=== PATIENT | female | born 1995 | race Two or more races ===

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

== ENCOUNTER 2022-04-16 19:30 | Emergency (ER) | payer MEDICAID ==
[~2022-04-16] VITALS: Ht 142.2 cm; Wt 44.0 kg
[2022-04-16 20:00] VITALS: BP 113/81
[2022-04-16 20:12] LABS: Basophils # (auto) 0 10 ^3/uL (0-0.2); Basophils % (auto) 0.5 % (0.0-2.0); Eosinophils # (auto) 0 10 ^3/uL (0-0.8); Eosinophils % (auto) 0.2 % (0.0-7.0); Hemoglobin 13.9 g/dL (12.2-16.2); Lymphocytes # (auto) 1.2 10 ^3/uL (0.4-5.4); Lymphocytes % (auto) 16.1 % (10.0-50.0); Mean Corpuscular Hemoglobin 28.1 pg (28.0-32.0); Mean Corpuscular Hgb Conc. 33.8 g/dL (32.0-36.0); Mean Corpuscular Volume 83.1 fL (80.0-100.0); Monocytes # (auto) 0.4 10 ^3/uL (0-1.3); Monocytes % (auto) 6.1 % (0.0-12.0); Neutrophils # (auto) 5.6 10 ^3/uL (1.6-8.6); Neutrophils % (auto) 77.1 % (37.0-80.0); Nucleated Red Blood Cells % 0.1 %; Red Blood Cells 4.93 10^6/uL (4.0-5.20); Red Cell Distribution Width 14.9 % (11.8-14.3); White Blood Cell 7.3 10^3/uL (4.4-10.8)
[2022-04-16 20:28] LABS: Albumin 3.9 g/dL (3.4-5.0); BUN/Creatinine Ratio 8.3; Calcium 8.6 mg/dL (8.5-10.1); Magnesium 2.3 mg/dL (1.6-2.6); Potassium 3.8 mmol/L (3.5-5.1)
[2022-04-16 20:30] LABS: Bilirubin, Total 0.4 mg/dL (0.2-1.0); Total Protein 8.1 g/dL (6.4-8.2)
[2022-04-16 21:25] LABS: Amphetamine Screen, Urine NEGATIVE (NEGATIVE); Barbiturate Scree,Urine NEGATIVE (NEGATIVE); Benzodiazephine Screen, Urine NEGATIVE (NEGATIVE); Cannabinoid Screen, Urine POSITIVE (NEGATIVE); Cocaine Screen, Urine NEGATIVE (NEGATIVE); Opiate Scree,Urine NEGATIVE (NEGATIVE); Phencyclidine Screen, Urine NEGATIVE (NEGATIVE)
[2022-04-16 21:26] LABS: Urine Bacteria NONE SEEN /hpf (None Seen); Urine Blood 3+ /uL (Negative); Urine Hyaline Cast FEW /lpf (0 - 2); Urine Specific Gravity 1.015 (1.001-1.035); Urine WBC 4 /hpf (0 - 5)
== END 2022-04-17 | disposition left against medical advice (07) ==
LOC: ER 19:30
DX: R56.9 Unspecified convulsions (principal); Z53.21 Procedure and treatment not carried out due to patient leaving prior to being seen by health care provider; Z79.899 Other long term (current) drug therapy
CPT/HCPCS: 36415; 80053; 80307; 80320; 81001; 81025; 83735; 84484; 85025; 93005

== ENCOUNTER 2024-09-14 03:00 | Emergency (ER) | payer MEDICAID ==
[~2024-09-14] VITALS: Ht 142.2 cm; Wt 54.0 kg
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
[2024-09-14 06:09] VITALS: BP 126/92; PULSE 119; RESP 16; TEMP 99.1
[2024-09-14 06:13] VITALS: O2SAT 96
== END 2024-09-14 06:12 | disposition home or self-care (01) ==
LOC: ER 03:00 → EDBD 03:00 → ER 06:12
DX: S13.4XXA Sprain of ligaments of cervical spine, initial encounter (principal); V89.2XXA Person injured in unspecified motor-vehicle accident, traffic, initial encounter; Y93.I9 Activity, other involving external motion; Y92.488 Other paved roadways as the place of occurrence of the external cause; Y99.8 Other external cause status
CPT/HCPCS: 70450; 72125; 74176

== ENCOUNTER 2025-01-23 19:43 | Emergency (ER) | payer MEDICAID ==
[~2025-01-23] VITALS: Ht 142.2 cm; Wt 52.0 kg
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
[2025-01-23 20:38] LABS: Albumin 4.5 g/dL (3.2-4.8); Alkaline Phosphatase 72 U/L (46-116); Anion Gap 18 (5-15); BUN/Creatinine Ratio 8.4 (10.0-20.0); Calcium 9.1 mg/dL (8.7-10.4); Chloride 104 mmol/L (98-107); Potassium 3.9 mmol/L (3.5-5.1); Sodium 139 mmol/L (136-145); Total Protein 8.0 g/dL (5.7-8.2)
[2025-01-23 20:46] LABS: Cannabinoid Screen, Urine Pos (NEGATIVE); Cocaine Screen, Urine Neg (NEGATIVE)
[2025-01-23] MEDS: ONDANSETRON HCL 4 MG/2 ML VIAL IV ONE (21:00)
[2025-01-23] MEDS: SODIUM CHLORIDE 0.9% 1,000 ML IV ONE (21:00)
[2025-01-23] MEDS: ACETAMINOPHEN 500 MG TAB or CAP PO ONE (21:00)
[2025-01-23] MEDS: levETIRAcetam 1000 mg/100ml 100 ML IV ONE (21:00)
[2025-01-23 21:04] LABS: Urine Protein, UAD 1+ (Negative)
[2025-01-23 21:05] LABS: Amphetamine Screen, Urine Neg (NEGATIVE); Barbiturate Scree,Urine Neg (NEGATIVE); Benzodiazephine Screen, Urine Neg (NEGATIVE); Opiate Scree,Urine Neg (NEGATIVE); Phencyclidine Screen, Urine Neg (NEGATIVE)
[2025-01-23 21:05] LABS: Alanine Aminotransferase 80 U/L (7-40); Bilirubin, Total 1.2 mg/dL (0.2-1.0); Blood Urea Nitrogen 7 mg/dL (9-23); Carbon Dioxide 17 mmol/L (20-31); Glucose 121 mg/dL (74-106)
[2025-01-23 21:09] LABS: Hematocrit 40.3 % (36.0-46.0); Hemoglobin 13.3 g/dL (12.2-16.2); Mean Corpuscular Hemoglobin 27.5 pg (28.0-32.0); Mean Corpuscular Volume 83.5 fL (80.0-100.0); Nucleated Red Blood Cells % 0.2 %
[2025-01-23 23:00] VITALS: BP 105/62; PULSE 81; RESP 12; TEMP 99; O2SAT 98
== END 2025-01-24 00:19 | disposition home or self-care (01) ==
LOC: EDBD 19:43 → ER 19:43
DX: G40.909 Epilepsy, unspecified, not intractable, without status epilepticus (principal); F10.90 Alcohol use, unspecified, uncomplicated; F12.90 Cannabis use, unspecified, uncomplicated; Y90.9 Presence of alcohol in blood, level not specified
CPT/HCPCS: 36415; 80053; 80307; 81001; 85025; 96365; 96375; 99284; J1953; J2405; J7030